=== PATIENT | female | born 1995 | race Caucasian/White ===

== ENCOUNTER 2021-05-22 04:11 | Emergency (ER) | payer BC ==
[2021-05-22 05:18] LABS: ACETAMINOPHEN 0 ug/mL (10-30)
[2021-05-22] MEDS ORDERED: Haloperidol Lactate 5 MG/ML SDV ONE ×2 (05:44→06:57)
[2021-05-22] MEDS ORDERED: LORazepam 2 MG/ML SDV ONE (05:44)
[2021-05-22] MEDS ORDERED: diphenhydrAMINE 50 MG/ML SDV ONE (06:27)
[2021-05-22] MEDS ORDERED: diphenhydrAMINE 50 MG/ML SDV IM ONE (06:28)
[2021-05-22] MEDS ORDERED: Haloperidol Lactate 5 MG/ML SDV IM ONE ×2 (06:57→07:05)
[2021-05-22] MEDS ORDERED: LORazepam 2 MG/ML SDV IM ONE (07:05)
[2021-05-22 08:24] VITALS: BP 114/104; PULSE 84
== END 2021-05-22 09:40 ==
LOC: JD.ED 04:11
DX: F33.2 Major depressive disorder, recurrent severe without psychotic features (principal); F10.129 Alcohol abuse with intoxication, unspecified; R45.851 Suicidal ideations; E66.9 Obesity, unspecified; Z68.37 Body mass index [BMI] 37.0-37.9, adult; Z20.822 Contact with and (suspected) exposure to COVID-19; Z72.0 Tobacco use
CPT/HCPCS: 36415; 70450; 71250; 72125; 74176; 80053; 80143; 80179; 80306; 80307; 81025; 85025; 85610; 87635; 96372; 99285; J1200; J1630; J2060; U0002

== ENCOUNTER 2021-06-22 10:40 | Emergency (ER) | payer BC ==
[2021-06-22 10:56] VITALS: BP 149/67; PULSE 70
[2021-06-22] MEDS ORDERED: HYDROmorphone 1 MG/ML Syringe IM ONE (11:23)
[2021-06-22] MEDS ORDERED: Iopamidol 612 MG/ML 100 ML Bottle IVPUSH ONE (11:39)
[2021-06-22] MEDS ORDERED: Sodium Chloride 0.9% 10 ML SDV FLUSH ONE (11:39)
[2021-06-22] MEDS ORDERED: Sodium Chloride 0.9% 100 ML IV SCH ×2 (11:45→13:15)
[2021-06-22] MEDS ORDERED: Sodium Chloride 0.9% 1,000 ML IV STA (13:07)
[2021-06-22] MEDS ORDERED: Iopamidol 755 Mg/ML 100 ML Bottle IVPUSH ONE (13:09)
[2021-06-22] MEDS ORDERED: Sodium Chloride 0.9% 10 ML Syringe FLUSH PRN (13:09)
== END 2021-06-22 15:15 | disposition home or self-care (01) ==
LOC: JD.ED 10:40
DX: S06.6X0A Traumatic subarachnoid hemorrhage without loss of consciousness, initial encounter (principal); S36.115A Moderate laceration of liver, initial encounter; S30.1XXA Contusion of abdominal wall, initial encounter; S36.899A Unspecified injury of other intra-abdominal organs, initial encounter; E27.49 Other adrenocortical insufficiency; E66.9 Obesity, unspecified; Z20.822 Contact with and (suspected) exposure to COVID-19; Z68.38 Body mass index [BMI] 38.0-38.9, adult; V49.40XA Driver injured in collision with unspecified motor vehicles in traffic accident, initial encounter; Y92.410 Unspecified street and highway as the place of occurrence of the external cause
CPT/HCPCS: 36415; 70450; 70496; 71045; 73120; 74177; 80053; 81001; 84703; 85025; 85610; 87635; 96372; 99284; J1170; J3490; J7030; Q9967; 29130; 99285; U0002